=== PATIENT | female | born 1950 | race Caucasian/White ===

== ENCOUNTER 2022-12-22 07:30 | Inpatient (IN) | payer OTHER ==
[~2022-12-22] VITALS: Ht 167.6 cm; Wt 88.5 kg
[2023-01-07 11:08] LABS: BASOPHILS # (AUTO) 0.1 K/uL (0.0-0.2); BASOPHILS % (AUTO) 0.9 % (0.0-2.0); EOSINOPHILS # (AUTO) 0.4 K/uL (0.0-0.4); EOSINOPHILS % (AUTO) 7.3 % (0.0-4.0); HEMATOCRIT 34.6 % (36-48); HEMOGLOBIN 11.6 g/dL (12.0-16.0); LYMPHOCYTES # (AUTO) 1.4 K/uL (1.0-5.5); LYMPHOCYTES % (AUTO) 24.1 % (20.5-51.5); MEAN CORPUSCULAR HEMOGLOBIN 32 pg (27-31); MEAN CORPUSCULAR HGB CONC 33 % (32-36); MEAN CORPUSCULAR VOLUME 96 fL (79.0-98.0); MONOCYTES # (AUTO) 0.5 K/uL (0.0-1.0); MONOCYTES % (AUTO) 8.8 % (1.7-9.3); NEUTROPHILS # (AUTO) 3.3 K/uL (1.8-7.7); NEUTROPHILS % (AUTO) 58.9 % (40.0-70.0); PLATELET COUNT (AUTO) 261 K/uL (130-430); RED BLOOD CELL COUNT(AUTO) 3.62 MIL/uL (4.2-6.2); RED CELL DISTRIBUTION WIDTH 14.8 % (9.0-15.0); WHITE BLOOD COUNT (AUTO) 5.6 K/uL (4.8-10.8)
[2023-01-07 11:31] LABS: PROTHROMBIN TIME 10.1 SECS (9.5-12.5)
[2023-01-07 11:47] LABS: ALANINE AMINOTRANSFERASE 24 U/L (12-78); ALBUMIN 3.6 g/dL (3.4-4.8); ANION GAP 10 (5-15); ASPARTATE AMINOTRANSFERASE 18 U/L (10-37); CALCIUM 8.5 mg/dL (8.4-11.0); CHLORIDE 105 mmol/L (98-107); CREATININE 1.47 mg/dL (0.55-1.30); GLUCOSE 61 mg/dL (70-99); TOTAL BILIRUBIN 0.4 mg/dL (0.0-1.0); UREA NITROGEN, BLOOD 29 mg/dL (8-21)
[2023-01-10] MEDS ORDERED: CEFAZOLIN SOD 2 GM in D5W 50 ML IV ONE (06:30)
[2023-01-10] MEDS ORDERED: ACETAMINOPHEN I.V. 1000 MG 100 ML IV ONE (07:15)
[2023-01-10] MEDS ORDERED: TRANEXAMIC ACID 1,000 MG/10 ML VIAL ONE (07:20)
[2023-01-10] MEDS ORDERED: SEVOFLURANE 15 MIN GAS INH ONE (07:20)
[2023-01-10] MEDS ORDERED: MEPERIDINE 50 MG/ML VIAL ONE (07:20)
[2023-01-10] MEDS ORDERED: NS IRRIG SOLN 1000 ML IR ONE (07:20)
[2023-01-10] MEDS ORDERED: VANCOMYCIN HCL 1000 MG/VIAL IV ONE (07:20)
[2023-01-10] MEDS ORDERED: NS 1000 ML IV.SOLN IV ONE (07:20)
[2023-01-10] MEDS ORDERED: WATER FOR IRRIGATION,STERILE 1,000 ML IRRIG.SOLN IR ONE (07:20)
[2023-01-10] MEDS ORDERED: ONDANSETRON HCL 4 MG/2 ML VIAL ONE (07:20)
[2023-01-10] MEDS ORDERED: fentaNYL CITRATE/PF 100 MCG/2 ML AMP IVP ONE (07:20)
[2023-01-10] MEDS ORDERED: ROPIVACAINE HCL/PF 5 MG/ML 0.5% 30 ML VIAL ONE (07:20)
[2023-01-10] MEDS ORDERED: DEXAMETHASONE SOD PHOSPHATE 4 MG/ML VIAL ONE (07:20)
[2023-01-10] MEDS ORDERED: CEFAZOLIN 2 GM IVPB PREMIX 50 ML IV ONE (07:20)
[2023-01-10] MEDS ORDERED: HYDROmorphone 1 MG/ML INJ. CARTRIDGE IVP PRN ×4 (08:15→11:00)
[2023-01-10] MEDS ORDERED: LR 1,000 ML IV SCH (08:15)
[2023-01-10] MEDS ORDERED: METOCLOPRAMIDE HCL 10 MG/2 ML VIAL IVP PRN ×2 (08:15→10:15)
[2023-01-10] MEDS ORDERED: ONDANSETRON HCL 4 MG/2 ML VIAL IVP PRN ×2 (08:15→11:45)
[2023-01-10] MEDS ORDERED: MEPERIDINE HCL/PF 25 MG/ML DISP.SYRIN IVP PRN (08:15)
[2023-01-10] MEDS ORDERED: BUPIVACAINE LIPOSOME/PF 266 MG/20 ML VIAL INFIL ONE (09:13)
[2023-01-10] MEDS ORDERED: BISACODYL 10 MG/SUPPOSITORY RC PRN (10:15)
[2023-01-10] MEDS ORDERED: LACTULOSE 20 GM/30 ML UDC PO PRN (10:15)
[2023-01-10] MEDS ORDERED: NALOXONE HCL 0.4 MG/ML AMP (NARCAN) IVP PRN ×3 (10:15)
[2023-01-10] MEDS ORDERED: DIPHENHYDRAMINE HCL 25 MG CAPSULE PO PRN (10:15)
[2023-01-10] MEDS ORDERED: oxyCODONE HCL 5 MG TABLET PO PRN ×2 (11:00)
[2023-01-10] MEDS ORDERED: traMADol HCL HCL 50 MG TABLET (ULTRAM) PO PRN (11:00)
[2023-01-10] MEDS ORDERED: LORATADINE 10 MG TABLET PO PRN (11:00)
[2023-01-10] MEDS ORDERED: LOSA25TA3 PO (11:10)
[2023-01-10] MEDS ORDERED: GLYC2TAB21 PO (11:10)
[2023-01-10 11:15] VITALS: BP_SYST 139
[2023-01-10 12:00] VITALS: BP_SYST 119
[2023-01-10 12:07] VITALS: BP_SYST 120
[2023-01-10] MEDS: ACETAMINOPHEN 500 MG TABLET PO SCH ×2 (14:00→22:38)
[2023-01-10] MEDS: KETOROLAC TROMETHAMINE 10 MG TABLET (TORADOL) PO SCH ×2 (14:00→22:37)
[2023-01-10 15:13] VITALS: BP_SYST 119
[2023-01-10 20:00] VITALS: BP_SYST 109
[2023-01-10] MEDS: ceFAZolin SODIUM 2 GM in D5W 50 ML IV SCH (20:00)
[2023-01-10] MEDS: SENNOSIDES/DOCUSATE SODIUM 1 TAB TABLET(SENOKOT-S) PO SCH (21:00)
[2023-01-11] VITALS: BP_SYST 102
[2023-01-11] MEDS: ceFAZolin SODIUM 2 GM in D5W 50 ML IV SCH (04:04)
[2023-01-11] MEDS: KETOROLAC TROMETHAMINE 10 MG TABLET (TORADOL) PO SCH (05:35)
[2023-01-11] MEDS: ACETAMINOPHEN 500 MG TABLET PO SCH ×2 (05:36→14:18)
[2023-01-11] MEDS ORDERED: ASA81 PO (07:22)
[2023-01-11] MEDS ORDERED: SENN-22 PO (07:22)
[2023-01-11 07:47] LABS: BASOPHILS % (AUTO) 0.6 % (0.0-2.0); EOSINOPHILS % (AUTO) 0.8 % (0.0-4.0); HEMATOCRIT 28.1 % (36-48); HEMOGLOBIN 9.4 g/dL (12.0-16.0); LYMPHOCYTES % (AUTO) 17.6 % (20.5-51.5); MEAN CORPUSCULAR HEMOGLOBIN 32 pg (27-31); MEAN CORPUSCULAR HGB CONC 33 % (32-36); MEAN CORPUSCULAR VOLUME 96 fL (79.0-98.0); MONOCYTES # (AUTO) 0.6 K/uL (0.0-1.0); MONOCYTES % (AUTO) 9.5 % (1.7-9.3); NEUTROPHILS # (AUTO) 4.2 K/uL (1.8-7.7); NEUTROPHILS % (AUTO) 71.5 % (40.0-70.0); PLATELET COUNT (AUTO) 187 K/uL (130-430); RED BLOOD CELL COUNT(AUTO) 2.94 MIL/uL (4.2-6.2); RED CELL DISTRIBUTION WIDTH 14.6 % (9.0-15.0); WHITE BLOOD COUNT (AUTO) 5.9 K/uL (4.8-10.8)
[2023-01-11 07:54] LABS: ANION GAP 10 (5-15); CALCIUM 7.7 mg/dL (8.4-11.0); CHLORIDE 103 mmol/L (98-107); CREATININE 1.53 mg/dL (0.55-1.30); GLUCOSE 101 mg/dL (70-99); UREA NITROGEN, BLOOD 22 mg/dL (8-21)
[2023-01-11 08:00] VITALS: BP_SYST 106
[2023-01-11] MEDS: SENNOSIDES/DOCUSATE SODIUM 1 TAB TABLET(SENOKOT-S) PO SCH (08:34)
[2023-01-11] MEDS ORDERED: DECADRON 4 MG TABLET PO SCH (09:00)
[2023-01-11] MEDS ORDERED: ASPIRIN 81 MG TAB.CHEW PO SCH (09:00)
[2023-01-11] MEDS ORDERED: CELECOXIB 200 MG CAPSULE PO SCH (11:00)
[2023-01-11 11:08] VITALS: BP_SYST 102
[2023-01-11 14:07] VITALS: BP_SYST 119
== END 2023-01-11 14:40 | disposition home health service (06) | DRG 470 ==
LOC: SMU 01-10 05:15
PROVIDERS: ADMIT Student in an Organized Health Care Education/Training Program; ATTEND Student in an Organized Health Care Education/Training Program
PROC: 0SRB0JZ Replacement of Left Hip Joint with Synthetic Substitute, Open Approach (ICD-10-PCS; principal; 2023-01-10 07:25)
DX: M16.12 Unilateral primary osteoarthritis, left hip (principal); E86.0 Dehydration
CPT/HCPCS: 36415; 71046-TC; 72170-TC; 73501; 80048; 80053; 85025; 85610-TC; 85730-TC; 87081; 88304; 88311; 96379; 97110-GP; 97116-GP; 97530-GP; C1713; C1776; C9290; J0131; J0690; J1100; J2175; J2405; J3010; J3370; J3490; J7030; J7060; J8540